=== PATIENT | female | born 1990 | race Caucasian/White ===

== ENCOUNTER → 2018-08-09 | Outpatient (CLI) | payer OTHER ==
[2018-08-09 13:21] VITALS: BP 127/75; PULSE 92; RESP 16; TEMP 97.8; BMI 22.9
--- NOTE | 2018-08-09 14:14 | P.HPOB ---
History of Present Illness H&P Date: 08/09/18 Chief Complaint: The patient is here for her routine gynecologic exam. This is a 27-year-old with an LMP of February 2017. The patient is here to establish with this office. She is status post vaginal delivery in the summer of 2017. She had a Mirena IUD placed in March 2018. She also used the Mirena IUD between her 1st and 2nd pregnancies. She believes she generally does not have menstrual periods with the Mirena IUD. She is without gynecologic complaints. She stopped breast-feeding about 2 months ago. She is not interested in attempting in the near future. Review of Systems She states she has lost her weight and is back to her prepregnancy weight. She denies respiratory, cardiac, or G.I. problems. Past Medical History Additional Past Medical History / Comment(s): TMJ. PAST AGRICULTURAL SCIENTIST HISTORY: She has no history of STDs. 2 vaginal deliveries. History of Any Multi-Drug Resistant Organisms: None Reported Additional Past Surgical History / Comment(s): Arthrocentesis to jaw. 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 - Past Family History Mother Family Medical History: No Reported History Medications and Allergies Home Medications Medication Instructions Recorded Confirmed Type No Known Home Medications 08/09/18 08/09/18 History Allergies Allergy/AdvReac Type Severity Reaction Status Date / Time meperidine [From Demerol] AdvReac Rash/Hives Unverified 08/09/18 13:16 Exam Vital Signs Temp Pulse Resp BP Pulse Ox 08/09/18 13:17 97.8 F 92 16 127/75 97 Intake and Output 08/08/18 08/09/18 08/09/18 22:59 06:59 14:59 Other: Weight 62.596 kg Height 5'5", weight 138 pounds, BMI 23.0. This is a well-developed well-nourished white female who is alert and oriented times 3 in no acute distress. HEENT: Within normal limits. NECK: Supple without mass or thyromegaly. CHEST AND LUNGS: Clear to auscultation. HEART: Regular rate and rhythm. BREASTS: Are without mass or discharge. AXILLARY EXAM: Negative for adenopathy. BACK: Negative for CVA tenderness. ABDOMEN: Soft, nontender, without palpable masses. PELVIC EXAM: Normal external genitalia. Cervix and vagina appear normal. There is an IUD string protruding from the cervical office approximately 3 cm. There is no cervical motion tenderness. There is no unusual discharge. There is no evidence of prolapse. The uterus is midposition, nongravid size and nontender. There are no palpable adnexal masses or tenderness. RECTAL EXAM: deferred. EXTREMITIES: Nontender. IMPRESSION: 1. 27-year-old female with normal gynecologic exam who is 8 months . 2. Doing well with a Mirena IUD in place. PLAN: 1. Pap smear was performed. 2. Self breast awareness was discussed with the patient. 3. Osteoporosis prevention was discussed. I have stressed the importance of adequate calcium, vitamin D and regular exercise. Recommended amounts of calcium and vitamin D were also discussed. 4. She was advised to return in one year for her annual well woman exam.
--- NOTE | 2018-08-17 09:28 | P.PN ---
Progress Note - Text Progress Note Date: 08/17/18 OUTPATIENT FOLLOW-UP NOTE TEST(S)/RESULTS: Pap smear from 08/09/2018 was negative. METHOD OF NOTIFICATION: the patient was notified by phone. PATIENT COMMENTS: the patient is happy to hear this result. DIAGNOSIS: negative Pap smear DISCUSSION: PLAN: She was advised to return in one year for her annual well woman exam.
== END ==
LOC: WWCWWP 12:50
PROVIDERS: ATTEND Obstetrics & Gynecology
DX: Z53.9 Procedure and treatment not carried out, unspecified reason (principal)

== ENCOUNTER → 2020-10-16 | Outpatient (CLI) | payer BC ==
[2020-10-17 11:26] LABS: Anti-Endomysial IgA Antibody <1:10 Titer (<1:10)
[2020-10-17 12:45] LABS: Chicken IgE Class CLASS 0
[2020-10-17 12:46] LABS: Avocado Class CLASS 0
[2020-10-17 15:40] LABS: Gliadin AB IgA, Deaminated NEGATIVE (NEGATIVE); Gliadin AB IgA, Unit 0.2 U/mL; Gliadin AB IgG, Deaminated NEGATIVE (NEGATIVE)
== END | disposition home or self-care (01) ==
LOC: LABWHC1 14:25
PROVIDERS: ATTEND Allergy & Immunology
DX: T78.2XXA Anaphylactic shock, unspecified, initial encounter (principal); K52.29 Other allergic and dietetic gastroenteritis and colitis; K21.9 Gastro-esophageal reflux disease without esophagitis
CPT/HCPCS: 36415; 82784; 83516; 83520; 86003; 86255

== ENCOUNTER → 2020-11-29 | Day surgery (SDC) | payer BC ==
[2020-11-28 08:26] VITALS: BMI 22.4
[~2020-11-29] MED LIST: LACTATED RINGERS 1,000 ML IV SCH; LIDOCAINE 1% (10MG/ML) FOR IV START INTRADERMA PRN; LIDOCAINE 1% INJ 10MG/ML (20 ML MDV) ONE; PROPOFOL 10 MG/ML 20 ML VIAL IV ONE
[2020-11-29 10:32] VITALS: RESP 16; TEMP 98.7
--- NOTE | 2020-11-29 11:06 | P.PCN ---
Date of Procedure: 11/29/20 Procedure(s) Performed: BRIEF HISTORY: Patient is a 30-year-old, pleasant, white female scheduled for an upper endoscopy as a part of evaluation of abdominal pain for the last several years duration. She also has altered bowel movements. She is being evaluated performed possible celiac disease. PROCEDURE PERFORMED: Esophagogastroduodenoscopy with biopsy. PREOPERATIVE DIAGNOSIS: Abdominal pain and change in bowel habits. IV sedation per anesthesia. PROCEDURE: After informed consent was obtained, the patient was brought into the endoscopy unit. IV sedation was administered by Anesthesia under continuous monitoring. Initially the Olympus GIF-140 video endoscope was inserted into the mouth. Esophagus intubated without any difficulty. It was gradually advanced into the stomach and duodenum and carefully examined. The bulb and the second part of the duodenum appeared normal. Biopsies were done from the duodenum to rule out celiac disease The scope at this time was withdrawn to the stomach, adequately insufflated with air, and upon careful examination, mucosa of the antrum, gastritis and biopsies were done from this area. The body, cardia and the fundus appeared normal. The scope was then withdrawn into the esophagus. The GE junction was located at 39 cm from the incisors. The esophagus appeared normal. There were no erosions or ulcerations seen, biopsies were done from the distal esophagus and the patient tolerated the procedure well. IMPRESSION: 1. Normal-appearing duodenum status post multiple biopsies to rule out celiac disease. 2. Mild antral gastritis. RECOMMENDATIONS: The findings of this examination were discussed with the patient as well as her family. She was advised to follow with the biopsy results. She will follow with Dr. Dent is scheduled.
[2020-11-29 11:31] VITALS: BP 121/81; PULSE 73
== END ==
LOC: ORWHC2ENDO 10:00
PROVIDERS: ATTEND Internal Medicine Gastroenterology
DX: K21.00 Gastro-esophageal reflux disease with esophagitis, without bleeding (principal); K29.50 Unspecified chronic gastritis without bleeding; R19.4 Change in bowel habit; F41.9 Anxiety disorder, unspecified; Z79.899 Other long term (current) drug therapy
CPT/HCPCS: 81025; 88305; 43239; J2001; J2704

== ENCOUNTER 2020-12-28 20:27 | Emergency (ER) | payer BC ==
[2020-12-28 20:42] VITALS: TEMP 98.2
[2020-12-28] MEDS ORDERED: diphenhydrAMINE 50 MG/ML 1 ML VIAL IVP STA (21:12)
[2020-12-28] MEDS ORDERED: PROCHLORPERAZINE INJ 10 MG/2 ML VIAL IVP STA (21:12)
[2020-12-28] MEDS ORDERED: SODIUM CHLORIDE 0.9% 1,000 ML IV STA (21:12)
[2020-12-28] MEDS ORDERED: KETOROLAC 15 MG/ML 1 ML VIAL IVP STA (21:12)
--- NOTE | 2020-12-28 21:42 | ED ---
Headache HPI - General Chief Complaint: Headache Stated Complaint: Arm/leg numbness,Head pain Time Seen by Provider: 12/28/20 21:08 Source: RN notes reviewed, old records reviewed Mode of arrival: wheelchair Limitations: no limitations - History of Present Illness Initial Comments: This is a 30-year-old female who presents today for evaluation regards to headache. Patient does have history of headaches but this is more chronic headache 3 days. Comorbid the she also suffers from some numbness until going upper extremities and blurriness, nausea or vomiting. No traumas no fevers no other complaints she is having ear strain body heaviness MD Complaint: headache, "migraine" -: days(s) (3) Onset Description: gradual Location: right, left, frontal Severity: moderate Severity scale (1-10): 5 Quality: aching, throbbing Improves With: nothing Worsens With: none Context: occurred at rest Associated Symptoms: nausea, vomiting, sensitivity to sound, weakness Other Symptoms: malaise Treatments Prior to Arrival: none - Related Data Home Medications Medication Instructions Recorded Confirmed Ascorbic Acid [Vitamin C] 1,000 mg PO DAILY PRN 11/28/20 11/29/20 Cholecalciferol [Vitamin D3 (25 25 mcg PO DAILY 11/28/20 11/29/20 Mcg = 1000 Iu)] Sertraline [Zoloft] 50 mg PO DAILY 11/28/20 11/29/20 Allergies Allergy/AdvReac Type Severity Reaction Status Date / Time meperidine [From Demerol] Allergy Rash/Hives Verified 12/28/20 20:42 Review of Systems ROS Statement: Those systems with pertinent positive or pertinent negative responses have been documented in the HPI. ROS Other: All systems not noted in ROS Statement are negative. Past Medical History Past Medical History: GERD/Reflux Additional Past Medical History / Comment(s): Heart murmur as child; TMJ. c/o abd pain on/off for years, worse again in last year. migraines History of Any Multi-Drug Resistant Organisms: None Reported Past Surgical History: Cholecystectomy Additional Past Surgical History / Comment(s): EGD. Arthrocentesis to jaw. Past Anesthesia/Blood Transfusion Reactions: Motion Sickness Past Psychological History: Anxiety Smoking Status: Never smoker Past Alcohol Use History: None Reported Past Drug Use History: None Reported - Past Family History Mother Family Medical History: No Reported History General Exam Limitations: no limitations General appearance: alert, in no apparent distress Head exam: Present: atraumatic, normocephalic, normal inspection Eye exam: Present: normal appearance, PERRL, EOMI. Absent: scleral icterus, conjunctival injection, periorbital swelling ENT exam: Present: normal exam, mucous membranes moist Neck exam: Present: normal inspection. Absent: tenderness, meningismus, ly mphadenopathy Respiratory exam: Present: normal lung sounds bilaterally. Absent: respiratory distress, wheezes, rales, rhonchi, stridor Cardiovascular Exam: Present: regular rate, normal rhythm, normal heart sounds. Absent: systolic murmur, diastolic murmur, rubs, gallop, clicks GI/Abdominal exam: Present: soft, normal bowel sounds. Absent: distended, tenderness, guarding, rebound, rigid Extremities exam: Present: normal inspection, full ROM, normal capillary refill. Absent: tenderness, pedal edema, joint swelling, calf tenderness Back exam: Present: normal inspection Neurological exam: Present: alert, oriented X3, CN II-XII intact Psychiatric exam: Present: normal affect, normal mood Skin exam: Present: warm, dry, intact, normal color. Absent: rash Course Vital Signs 12/28/20 12/28/20 20:37 22:51 Temperature 98.2 F Pulse Rate 79 78 Respiratory 20 18 Rate Blood Pressure 129/76 95/50 O2 Sat by Pulse 99 Oximetry - Reevaluation(s) Reevaluation #1: 12/28/20 23:59 Medical record is reviewed Reevaluation #2: 12/28/20 23:59 Patient symptoms are resolved here in the ER she does not request further medication and wishes for discharge Reevaluation #3: 12/29/20 00:00 Patient informed results and questions answered Medical Decision Making - Medical Decision Making 30 female who to the ER for evaluation of headache migraine headache CT negative labwork normal patient symptoms are resolved and she can be discharged home - Lab Data Result diagrams: 12/28/20 21:28 12/28/20 21:28 Lab Results 12/28/20 12/28/20 12/28/20 Range/Units 21:28 21:28 21:28 WBC 10.8 H (3.8-10.6) k/uL RBC 4.48 (3.80-5.40) m/uL Hgb 14.4 (11.4-16.0) gm/dL Hct 42.0 (34.0-46.0) % MCV 93.6 (80.0-100.0) fL MCH 32.1 (25.0-35.0) pg MCHC 34.3 (31.0-37.0) g/dL RDW 12.0 (11.5-15.5) % Plt Count 284 (150-450) k/uL MPV 7.3 Neutrophils % 76 % Lymphocytes % 17 % Monocytes % 5 % Eosinophils % 1 % Basophils % 1 % Neutrophils # 8.2 H (1.3-7.7) k/uL Lymphocytes # 1.8 (1.0-4.8) k/uL Monocytes # 0.5 (0-1.0) k/uL Eosinophils # 0.1 (0-0.7) k/uL Basophils # 0.1 (0-0.2) k/uL Sodium 134 L (137-145) mmol/L Potassium 3.9 (3.5-5.1) mmol/L Chloride 98 (98-107) mmol/L Carbon Dioxide 28 (22-30) mmol/L Anion Gap 8 mmol/L BUN 15 (7-17) mg/dL Creatinine 0.57 (0.52-1.04) mg/dL Est GFR (CKD-EPI)AfAm >90 (>60 ml/min/1.73 sqM) Est GFR (CKD-EPI)NonAf >90 (>60 ml/min/1.73 sqM) Glucose 104 H (74-99) mg/dL Calcium 9.1 (8.4-10.2) mg/dL Phosphorus 3.3 (2.5-4.5) mg/dL Magnesium 2.0 (1.6-2.3) mg/dL Total Bilirubin 0.4 (0.2-1.3) mg/dL AST 26 (14-36) U/L ALT 15 (4-34) U/L Alkaline Phosphatase 90 (38-126) U/L Total Protein 7.4 (6.3-8.2) g/dL Albumin 4.6 (3.5-5.0) g/dL Urine Color Colorless Urine Appearance Clear (Clear) Urine pH 7.5 (5.0-8.0) Ur Specific [place] 1.004 (1.001-1.035) Urine Protein Negative (Negative) Urine Glucose (UA) Negative (Negative) Urine Ketones Negative (Negative) Urine Blood Negative (Negative) Urine Nitrite Negative (Negative) Urine Bilirubin Negative (Negative) Urine Urobilinogen <2.0 (<2.0) mg/dL Ur Leukocyte Esterase Negative (Negative) - EKG Data -: EKG Interpreted by Me (EKG shows sinus rhythm 72 LA 210 QRS 86 QTc 446) - Radiology Data Radiology results: report reviewed (CT brain negative for acute disease), image reviewed Disposition Clinical Impression: Headache, Migraine headache Disposition: HOME SELF-CARE Condition: Good Instructions (If sedation given, give patient instructions): Acute Headache (ED) Is patient prescribed a controlled substance at d/c from ED?: No Referrals: Luis Sherman MD [Primary Care Provider] - 1-2 days
[2020-12-28 21:55] LABS: Basophils # (A) 0.1 k/uL (0-0.2); Basophils % (A) 1 %; Eosinophils # (A) 0.1 k/uL (0-0.7); Eosinophils % (A) 1 %; HGB 14.4 gm/dL (11.4-16.0); Lymphocytes # (A) 1.8 k/uL (1.0-4.8); Lymphocytes % (A) 17 %; MCH 32.1 pg (25.0-35.0); MCHC 34.3 g/dL (31.0-37.0); MCV 93.6 fL (80.0-100.0); Mean Platelet Volume 7.3; Monocytes # (A) 0.5 k/uL (0-1.0); Monocytes % (A) 5 %; Neutrophils # (A) 8.2 k/uL (1.3-7.7); Neutrophils % (A) 76 %; Platelet Count 284 k/uL (150-450); RBC 4.48 m/uL (3.80-5.40); WBC 10.8 k/uL (3.8-10.6)
[2020-12-28 21:57] LABS: Appearance,Urine Clear (Clear); Bilirubin,Urine Negative (Negative); Blood,Urine Negative (Negative); Color,Urine Colorless; Glucose,Urine (UA) Negative (Negative); Ketones,Urine Negative (Negative); Leukocyte Esterase,Urine Negative (Negative); Nitrite,Urine Negative (Negative); PH, Urine 7.5 (5.0-8.0); Protein,Urine Negative (Negative); Specific Gravity,Urine 1.004 (1.001-1.035); Urobilinogen,Urine <2.0 mg/dL (<2.0)
[2020-12-28 22:26] LABS: ALT 15 U/L (4-34); AST 26 U/L (14-36); African American GFR (CKD) >90 (>60 ml/min/1.73 sqM); Albumin 4.6 g/dL (3.5-5.0); Alkaline Phosphatase 90 U/L (38-126); Anion Gap 8 mmol/L; Blood Urea Nitrogen 15 mg/dL (7-17); Calcium 9.1 mg/dL (8.4-10.2); Carbon Dioxide 28 mmol/L (22-30); Chloride 98 mmol/L (98-107); Glucose 104 mg/dL (74-99); Non-African American GFR(CKD) >90 (>60 ml/min/1.73 sqM); Phosphorus 3.3 mg/dL (2.5-4.5); Potassium 3.9 mmol/L (3.5-5.1); Sodium 134 mmol/L (137-145); Total Bilirubin 0.4 mg/dL (0.2-1.3); Total Protein 7.4 g/dL (6.3-8.2)
--- NOTE | 2020-12-28 22:34 | CT ---
EXAMINATION TYPE: CT brain wo con DATE OF EXAM: 12/28/2020 COMPARISON: None HISTORY: Headache CT DLP: 1143.4 mGycm Automated exposure control for dose reduction was used. Ventricles and sulci appear normal. There is no mass effect nor midline shift. There is no sign of in tracranial hemorrhage. There is no evidence of cerebral edema. The calvarium is intact. Skull base is intact. IMPRESSION: Negative unenhanced head CT scan.
[2020-12-28 22:52] VITALS: BP 95/50; PULSE 78; RESP 18
== END 2020-12-28 22:52 | disposition home or self-care (01) ==
LOC: EC 20:27
DX: G43.909 Migraine, unspecified, not intractable, without status migrainosus (principal); F41.9 Anxiety disorder, unspecified; K21.9 Gastro-esophageal reflux disease without esophagitis; Z79.899 Other long term (current) drug therapy; Z88.5 Allergy status to narcotic agent; Z90.49 Acquired absence of other specified parts of digestive tract
CPT/HCPCS: 36415; 80053; 83735; 84100; 85025; 81003; 70450; 96365; 96375 ×3; 99284; J1200; J0780; J2930; J1885; 93005

== ENCOUNTER → 2021-03-11 | Outpatient (CLI) | payer BC ==
--- NOTE | 2021-03-11 13:09 | XR ---
Lumbar spine and sacroiliac joints HISTORY: 20.2 3 views of the lumbar spine and 3 views of the sacroiliac joints Surgical clips are present in the right upper quadrant. Lumbar vertebral bodies show preserved height and bone mineralization. There is a slight spinal curvature centered at L4 convex left. Intrauterine contraceptive device is present over the pelvis. Probable phleboliths present within the pelvis. The re is multilevel spondylosis. Some loss of disc height present at the intervertebral levels. Gross is present in the posterior elements of the lower lumbar spine. Sacroiliac joints show no erosion, ankylosis, sclerosis or subchondral eburnation or cystic change. I f impression: Degenerative disc disease, facet arthropathy, slight spinal curvature
== END | disposition home or self-care (01) ==
LOC: RADXRMAIN 12:16
PROVIDERS: ATTEND Nurse Practitioner Family
DX: M47.816 Spondylosis without myelopathy or radiculopathy, lumbar region (principal); M51.36 Other intervertebral disc degeneration, lumbar region; M43.8X6 Other specified deforming dorsopathies, lumbar region
CPT/HCPCS: 72100; 72202

== ENCOUNTER → 2021-12-09 | Outpatient (CLI) | payer BC ==
[2021-12-09 15:31] VITALS: BP 126/80; PULSE 75; RESP 17; TEMP 98.5
--- NOTE | 2021-12-09 16:34 | P.HPOB ---
History of Present Illness H&P Date: 12/09/21 Chief Complaint: The patient is here for her routine gynecologic exam. This is a 31-year-old with an LMP of February 2017. She had a vaginal delivery in 2017 and had a Mirena IUD placed prior to having regular menstrual periods in March 2018. She is contemplating a future , but she and her are not agreement on this topic. She has been experiencing vulvar itching and irritation during the past 6-8 months. She denies any vaginal discharge. She has previously been treated for bacterial vaginosis about a year ago but is not experiencing any discharge or odor at this time. She denies any urinary symptoms such as dysuria or urinary urgency. She has tried various natural remedies for the itching including apple cider vinegar soaks. She thinks the irritation has spread toward the rectal opening. She is requesting to have her Mirena IUD removed today. She does not know if the IUD has anything to do with her vulvar symptoms, but she wants to give her body a rest from all external hormones. She is otherwise without complaints. Review of Systems She has gained about 3 pounds over the past 3 years. She denies respiratory, cardiac, or GI problems. Past Medical History Past Medical History: GERD/Reflux Additional Past Medical History / Comment(s): Heart murmur as child; TMJ. c/o abd pain on/off for years, worse again in last year. migraines. 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 History of Any Multi-Drug Resistant Organisms: None Reported Past Surgical History: Cholecystectomy Additional Past Surgical History / Comment(s): EGD. Arthrocentesis to jaw. Past Anesthesia/Blood Transfusion Reactions: Motion Sickness Past Psychological History: Anxiety Smoking Status: Never smoker Past Alcohol Use History: Rare (1 per month) Past Drug Use History: None Reported Additional History: She has been since 2009. 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 - Past Family History Mother Family Medical History: No Reported History Medications and Allergies Home Medications Medication Instructions Recorded Confirmed Type Ascorbic Acid [Vitamin C] 1,000 mg PO DAILY PRN 11/28/20 12/09/21 History Cholecalciferol [Vitamin D3 (25 25 mcg PO DAILY 11/28/20 12/09/21 History Mcg = 1000 Iu)] Sertraline [Zoloft] 50 mg PO DAILY 11/28/20 12/09/21 History Allergies Allergy/AdvReac Type Severity Reaction Status Date / Time meperidine [From Demerol] Allergy Rash/Hives Verified 12/09/21 15:17 Exam Vital Signs Temp Pulse Resp BP Pulse Ox 12/09/21 15:18 98.5 F 75 17 126/80 100 Intake and Output 12/09/21 12/09/21 12/09/21 06:59 14:59 22:59 Other: Weight 63.957 kg Height 5 feet 5 inches, weight 141 pounds, BMI 23.5. This is a well-developed well-nourished white female who is alert and oriented times 3 in no acute distress. HEENT: Within normal limits. She has a lip piercing. NECK: Supple without mass or thyromegaly. CHEST AND LUNGS: Clear to auscultation. HEART: Regular rate and rhythm. BREASTS: Are without mass or discharge. AXILLARY EXAM: Negative for adenopathy. BACK: Negative for CVA tenderness. ABDOMEN: Soft, nontender, without palpable masses. PELVIC EXAM: External genitalia reveals very mild generalized erythema without focal lesions. The perineum also has a slight leak inflamed appearance with mild erythema. The inflammation does not appear to extend to the perianal area. Cervix and vagina appear normal with a small amount of mucus discharge in the vagina without odor. The IUD string protrudes from the cervix by about 2 cm. There is no evidence of prolapse. The uterus is midposition, nongravid size and nontender. There are no palpable adnexal masses or tenderness. RECTAL EXAM: Deferred EXTREMITIES: Nontender. Mirena IUD removal was performed. The IUD string was grasped with a ring forceps and the Mirena IUD was removed intact without difficulty. The patient tolerated the procedure well. Estimated blood loss 0 mL. There were no complications. IMPRESSION: 1. 31-year-old female requesting her Mirena IUD be removed. This was removed today without difficulty. 2. Small mucus discharge on exam. Differential diagnosis will include physiologic discharge, bacterial vaginosis and less likely Trichomonas or candidiasis. 3. 6-8 month history of interlabial itching which has extended to the perineum. Differential diagnosis will include the vaginal infections as listed in number to as well as noninfectious vulvitis and dermatitis. PLAN: 1. Pap smear coitus was performed. 2. Self breast awareness was discussed with the patient. We have also discussed symptoms associated with inflammatory breast cancer. 3. Affirm vaginitis panel was obtained from the vagina. If this is negative, I will treat her with Kenalog 0.1% cream twice a day as needed. We have also discussed the importance of avoiding use of various products such as soaps and detergents and douches. I have asked her to also avoid her home remedies at this time. She is to use minimal amounts of soap and make sure she rinses thoroughly when she washes. She should also avoid scratching , rubbing and itching. She should also avoid strongly chlorinated water such as hot tubs or pools. 4. She understands that by removing the IUD, she will be prone to and I have recommended using condoms if she does not want to get at this time. We have discussed other options such as oral contraception and the NuvaRing as well as permanent sterilization methods. She may consider the NuvaRing in the future. 5. She was advised to return in one year for her annual well woman exam and as needed.
[2021-12-10 14:37] LABS: Gardnerella Positive (Negative); Source Genital; Trichomonas Negative (Negative)
== END ==
LOC: WWCWWP 15:11
PROVIDERS: ATTEND Obstetrics & Gynecology
DX: Z30.432 Encounter for removal of intrauterine contraceptive device (principal); L29.3 Anogenital pruritus, unspecified; K21.9 Gastro-esophageal reflux disease without esophagitis; F41.9 Anxiety disorder, unspecified; Z79.899 Other long term (current) drug therapy; Z88.5 Allergy status to narcotic agent
CPT/HCPCS: 87480; 87510; 87660

== ENCOUNTER → 2023-11-22 | Outpatient (CLI) | payer SELFPAY ==
[2023-11-22 10:11] LABS: Appearance,Urine Clear (Clear); Bilirubin,Urine Negative (Negative); Blood,Urine Negative (Negative); Color,Urine Yellow (Yellow); Ketones,Urine Negative (Negative); Nitrite,Urine Negative (Negative); PH, Urine 7.5; Specific Gravity,Urine 1.019 (1.001-1.030); Urobilinogen,Urine 0.2 E.U./DL
[2023-11-22 10:49] LABS: Basophils # (A) 0.04 X 10*3/uL (0.00-0.10); Basophils % (A) 0.5 %; Eosinophils # (A) 0.09 X 10*3/uL (0.04-0.35); Eosinophils % (A) 1.2 %; HCT 37.7 % (37.2-50.0); HGB 12.8 g/dL (12.0-17.0); Lymphocytes # (A) 1.55 X 10*3/uL (0.90-5.00); Lymphocytes % (A) 20.6 %; MCH 32.6 pg (27.0-32.0); MCV 95.9 FL (80.0-97.0); Mean Platelet Volume 10.3 FL (9.5-12.2); Monocytes # (A) 0.41 X 10*3/uL (0.20-1.00); Monocytes % (A) 5.5 %; NRBC Per 100 WBC 0 X 10*3/uL (0.00-0.01); Neutrophils # (A) 5.38 X 10*3/uL (1.80-7.70); Neutrophils % (A) 71.7 %; Platelet Count 278 X 10*3/uL (140-440); RBC 3.93 X 10*6/uL (4.10-5.60); RDW 12.2 % (11.5-14.5); WBC 7.51 X 10*3/uL (4.50-10.00)
[2023-11-22 10:59] LABS: Hepatitis B Surface Antigen Nonreactive (Nonreactive)
[2023-11-22 13:42] LABS: Urine Alcohol Negative (Negative); Urine Barbiturate Negative (Negative); Urine Cocaine Negative (Negative); Urine Methadone Negative (Negative); Urine Opiates Negative (Negative); Urine Phencyclidine Negative (Negative)
[2023-11-23 13:08] LABS: C. trachomatis,PCR Negative (Negative)
[2023-11-23 13:13] LABS: N. gonorrhoeae,PCR Negative (Negative)
== END | disposition home or self-care (01) ==
LOC: LABWHC1 07:29
PROVIDERS: ATTEND Obstetrics & Gynecology
DX: Z34.90 Encounter for supervision of normal pregnancy, unspecified, unspecified trimester (principal)
CPT/HCPCS: 36415; 80306; 81003; 85025; 86762; 86780; 86850; 86900; 86901; 87086; 87340; 87390; 87491; 87591

== ENCOUNTER → 2023-11-23 | Outpatient (CLI) | payer SELFPAY ==
--- NOTE | 2023-11-23 18:03 | US ---
EXAMINATION TYPE: US OB anatomy transabd DATE OF EXAM: 11/23/2023 COMPARISON: NONE CLINICAL INDICATION: Female, 33 years old with history of Z34.90 CARE; TECHNIQUE: Transabdominal (TA) EXAM MEASUREMENTS: GESTATIONAL AGE / DATING Physician Established: (20 weeks/4 days) EDC: 04/07/2024 Dates by LMP: Unknown Dates by First Scan: No previous here Dates by Current Scan for: (21 weeks/2 days) EDC: 04/02/2024 SURVEY IUP: Single PLACENTA: Fundal/Posterior PREVIA: No previa SUSIE: 13.9 cm Normal CERVICAL LENGTH (transabdominal: norm > 3.0cm): 4.8 cm BIOMETRY PRESENTATION: Breech LIE: Transverse lie with head maternal right BPD: 5.0 cm 21 weeks / 1 days HC: 18.2 cm 20 weeks / 5 days AC: 15.9 cm 21 weeks / 0 days FL: 3.8 cm 22 weeks / 2 days ESTIMATED WEIGHT IN GRAMS: 423 grams ESTIMATED WEIGHT IN LBS/OZ: 0 lbs. 15 oz. WEIGHT PERCENTAGE BASED ON ESTABLISHED DATE: 88 % HC/AC: 1.15 Normal FL/AC: 24% HEART RATE: 142 bpm RHYTHM: Normal ANATOMY SEEN (within normal limits): * Lateral Vent (< 1 cm) 0.7 cm * Cisterna Magna (< 1.1 cm) 0.5 cm * Nuchal Fold (< 0.6 cm) 0.3 cm * Cerebellum (varies with age) 2.2 cm Choroid Plexus (bilateral) Midline Falx Cavus Septi Pellucidi Four Chamber Heart Outflow tracts: LVOT/RVOT Stomach Situs Nose / Lips Diaphragm Kidneys (bilateral) Bladder Cord Insert Three Vessel Cord Longitudinal Spine Transverse Spine Arms (bilateral) Legs (bilateral) 1.9 x 1.7 x 2.3cm hypoechoic area seen anterior lower uterine segment no internal color Doppler magalys w. IMPRESSION: 1. Single live intrauterine gestation 21 weeks 2 days.. 2. Hypoechoic area in the lower uterine segment wall unclear if it's within the wall possibly relate d to thrombosed vessel and/or fibroid change. No internal color Doppler flow. Consider short-term fol low-up at a dedicated imaging center.
== END | disposition home or self-care (01) ==
LOC: RADUSWWP 12:26
PROVIDERS: ATTEND Obstetrics & Gynecology
DX: Z34.92 Encounter for supervision of normal pregnancy, unspecified, second trimester (principal); Z3A.21 21 weeks gestation of pregnancy
CPT/HCPCS: 76811

== ENCOUNTER → 2024-01-14 | Outpatient (CLI) | payer SELFPAY ==
[2024-01-14 16:26] LABS: Basophils # (A) 0.03 X 10*3/uL (0.00-0.10); Basophils % (A) 0.4 %; Eosinophils # (A) 0.04 X 10*3/uL (0.04-0.35); Eosinophils % (A) 0.5 %; Lymphocytes # (A) 1.54 X 10*3/uL (0.90-5.00); Lymphocytes % (A) 19.1 %; MCH 32.8 pg (27.0-32.0); MCHC 33.4 g/dL (32.0-37.0); MCV 98.2 FL (80.0-97.0); Mean Platelet Volume 10.4 FL (9.5-12.2); Monocytes # (A) 0.44 X 10*3/uL (0.20-1.00); Monocytes % (A) 5.5 %; NRBC Per 100 WBC 0 X 10*3/uL (0.00-0.01); Neutrophils # (A) 5.96 X 10*3/uL (1.80-7.70); Platelet Count 264 X 10*3/uL (140-440); WBC 8.05 X 10*3/uL (4.50-10.00)
[2024-02-02 11:02] LABS: HCT 38.6 % (37.2-46.3); HGB 12.9 g/dL (12.0-15.0); RBC 3.93 X 10*6/uL (4.10-5.20)
== END | disposition home or self-care (01) ==
LOC: LABWHC1 08:18
PROVIDERS: ATTEND Obstetrics & Gynecology
DX: Z34.90 Encounter for supervision of normal pregnancy, unspecified, unspecified trimester
CPT/HCPCS: 36415; 82950; 85025